=== PATIENT | male | born 1995 ===

== ENCOUNTER 2019-02-16 20:29 | Emergency (ER) | payer OTHER ==
[~2019-02-16] VITALS: Ht 182.9 cm; Wt 103.6 kg
[2019-02-16 22:01] VITALS: BP 137/74
== END 2019-02-16 22:20 | disposition home or self-care (01) ==
LOC: EMS 20:29
DX: F12.90 Cannabis use, unspecified, uncomplicated (principal)
CPT/HCPCS: 93005